=== PATIENT | female | born 1965 | race Caucasian/White ===

== ENCOUNTER 2019-03-13 23:57 | Emergency (ER) | payer OTHER ==
[~2019-03-13] VITALS: Ht 152.4 cm; Wt 79.4 kg
[2019-03-14 00:05] VITALS: Ht 152.4 cm; Wt 79.4 kg
[2019-03-14 03:13] VITALS: BP 134/70
== END 2019-03-14 03:13 | disposition home or self-care (01) ==
LOC: ED 23:57
DX: R42 Dizziness and giddiness (principal); R11.0 Nausea; R20.2 Paresthesia of skin; E03.9 Hypothyroidism, unspecified; I10 Essential (primary) hypertension; F41.9 Anxiety disorder, unspecified
CPT/HCPCS: J8597